=== PATIENT | male | born 1945 | race Caucasian/White ===

== ENCOUNTER 2023-03-09 18:35 | Emergency (ER) | payer MEDICARE, BC, SELFPAY ==
--- NOTE | ~2023-03-09 | XR_ITS ---
EXAMINATION: XR tibia fibula RT 2V DATE: 03/09/2023 20:25 INDICATION: Right lower leg spider bite. TECHNIQUE: 2 views of right tibia and fibula on 4 radiographs were obtained. COMPARISON: None. FINDINGS: There is a total right knee arthroplasty with patellar resurfacing in near-anatomic alignme nt. No fracture. No periprosthetic lucency to suggest loosening or infection. No knee joint effusion. There is mild midfoot osteoarthritis. There are enthesophytes at the posterior and plantar aspects o f calcaneal tuberosity. IMPRESSION: 1. Total right knee arthroplasty in near-anatomic alignment. 2. Mild midfoot osteoarthritis. Reviewed, dictated and finalized at location E.
[2023-03-09 18:45] VITALS: BP 110/64; PULSE 62; RESP 14; TEMP 36.7; O2SAT 98
[2023-03-09 19:24] VITALS: BP 124/67; PULSE 60; RESP 15; TEMP 36.6; O2SAT 99
--- NOTE | 2023-03-09 20:09 | ED.GENADULT ---
HPI - General Adult General Chief complaint: Wound/Laceration Stated complaint: spider bite Time Seen by Provider: 03/09/23 19:38 History of Present Illness HPI narrative: This is a 78-year-old male presenting ED with a spider bite to the right calf. Patient noticed yesterday that he had a central area of duskiness surrounded by some erythema in his right calf. He says he has low sees spiders around his house frequently but did not see 1 bite him today. He denies any systemic signs of illness such as fever chills nausea vomiting or diarrhea. Related Data Home Medications Medication Instructions Recorded Confirmed omeprazole magnesium 20 mg 20 mg PO DAILY 02/16/20 08/31/22 tablet,delayed release (Prilosec OTC) Allergies Allergy/AdvReac Type Severity Reaction Status Date / Time No Known Allergies Allergy Verified 08/17/21 13:18 [facility] Past Medical History Medical History Arthritis BPH (benign prostatic hyperplasia) HTN (hypertension) IBS (irritable bowel syndrome) Osteoporosis Stroke Surgical History Surgical History History of appendectomy History of left hip replacement History of left knee replacement History of right hip replacement History of total right knee replacement Hx of cholecystectomy Family History Family History Mother Heart attack Social History Social History Social History: caffeine-1 cup Smoking packs per day: 1.5 Smoking cigarettes per day: 30.0 Smoking status: Never smoker Tobacco type: cigarettes Alcohol intake: former Exam Narrative: APPEARANCE: No apparent distress. Head: atraumatic. EYES: EOMI, NOSE: Atraumatic NECK: Trachea midline RESPIRATORY: No increased rate of breathing CARDIOVASCULAR: RRR, ABDOMINAL: Non-distended MUSCULOSKELETAl: No obvious deformities NEURO: Alert. Moving 4/4 extremities SKIN:: warmth and erythema to the right calf. No area of fluctuance. No ulceration. PSYCHIATRIC: Normal affect Course Vital Signs Vital signs: Vital Signs Temperature 98.0 F 03/09/23 18:45 Pulse Rate 62 03/09/23 18:45 Respiratory Rate 14 03/09/23 18:45 Blood Pressure 110/64 03/09/23 18:45 Pulse Oximetry 98 03/09/23 18:45 Oxygen Delivery Room Air 03/09/23 18:45 Temperature 98 F 03/09/23 19:24 Pulse Rate 60 03/09/23 19:24 Respiratory Rate 15 03/09/23 19:24 Blood Pressure 124/67 03/09/23 19:24 Pulse Oximetry 99 03/09/23 19:24 Oxygen Delivery Room Air 03/09/23 18:45 Medical Decision Making MDM Narrative Medical decision making narrative: -Presentation: 78-year-old male presenting with skin lesion on the right calf. -DDX includes but is not limited to: Cellulitis, spider bite -Co-morbidities complicating care: history of CVA -Social determinants of health: retired, lives alone -External Chart Review: PCP officevisit from 09/19 -Hx from independent Sources: none -Discussion of Management/Consultants: none -Independent interpretation of studies: CBC and metabolic panel within normal limits. X-ray unremarkable. Physical exam showed no area of fluctuance indicating abscess and no crepitus and creating subcu air. Dx tests considered but not ordered: None -Procedures: none -Interventions: 1 g iv ancef -Shared decision making / Disposition: Patient will be started on Keflex. He should follow up his primary care physician as if this is a brown recluse bite he may need debridement. -RX Keflex 500 mg q.6 x7 days Vital Signs Vital Signs: Vital Signs Temperature 98.0 F 03/09/23 18:45 Pulse Rate 62 03/09/23 18:45 Respiratory Rate 14 03/09/23 18:45 Blood Pressure 110/64 03/09/23 18:45 Pulse Oximetry 98 03/09/23 18:45 Oxygen Delivery R
[2023-03-09] MEDS: ceFAZolin SODIUM 1 GM VIAL IM (20:24)
[2023-03-09 20:52] LABS: Basophils Absolute Auto 0.1 K/mm3 (0.0-0.1); Basophils Percent Auto 0.8 % (0.2-1.2); Eosinophils Absolute Auto 0.2 K/mm3 (0-0.3); Eosinophils Percent Auto 2.6 % (0-4.4); Hematocrit 37.2 % (42.0-52.0); Hemoglobin 12.4 g/dL (14.0-18.0); Immature Granulocyte Absolute 0.03 K/mm3 (0.00-0.031); Immature Granulocyte Percent A 0.5 % (0-0.5); Lymphocytes Absolute Auto 1.34 K/mm3 (0.9-3.2); Lymphocytes Percent Auto 20.2 % (18.3-44.2); Mean Corpuscular HGB Conc 33.3 g/dl (32-36); Mean Corpuscular Hemoglobin 32.3 pg (26-34); Mean Corpuscular Volume 96.9 fl (80-100); Monocytes Absolute Auto 0.8 K/mm3 (0.1-0.6); Monocytes Percent Auto 12.3 % (2.6-8.5); Neutrophils Absolute Auto 4.2 K/mm3 (1.3-6.7); Neutrophils Percent Auto 63.6 % (45.5-73.1); Platelet Count Result 150 k/mm3 (150-375); Red Blood Count 3.84 M/mm3 (4.6-6.20); Red Cell Distribution Width 12.5 % (11.5-14.5); White Blood Count 6.6 K/mm3 (4.5-10.0)
[2023-03-09 21:02] LABS: Anion Gap 8 mmol/L (8-16); Blood Urea Nitrogen 9 mg/dL (9-20); Calcium 8.6 mg/dL (8.4-10.2); Carbon Dioxide 24 mmol/L (22-30); Chloride 104 mmol/L (98-107); Estimated CRCL calculation 58 ml/min; Estimated Glomerular Filt Rate > 60; Glucose 107 mg/dL (65-110); Potassium 3.8 mmol/L (3.4-5.0); Sodium 136 mmol/L (137-145)
[2023-03-09 21:38] VITALS: BP 123/63; PULSE 60; RESP 15; O2SAT 100
[2023-03-09 22:08] VITALS: BP 123/63; PULSE 57; RESP 20; O2SAT 99
== END 2023-03-09 22:08 | disposition home or self-care (01) ==
PROVIDERS: Emergency Provider Emergency Medicine; PCP Internal Medicine
DX: L03.115 Cellulitis of right lower limb (principal); N40.0 Benign prostatic hyperplasia without lower urinary tract symptoms; K58.9 Irritable bowel syndrome, unspecified; M19.90 Unspecified osteoarthritis, unspecified site; M81.0 Age-related osteoporosis without current pathological fracture; Z96.643 Presence of artificial hip joint, bilateral; Z96.653 Presence of artificial knee joint, bilateral; Z86.73 Personal history of transient ischemic attack (TIA), and cerebral infarction without residual deficits; Z90.49 Acquired absence of other specified parts of digestive tract; F17.210 Nicotine dependence, cigarettes, uncomplicated
CPT/HCPCS: 36415; 73590; 80048; 85025; 99283; J0690

== ENCOUNTER 2024-07-15 14:16 | Emergency (ER) | payer MEDICARE, BC, SELFPAY ==
--- NOTE | ~2024-07-15 | XR_ITS ---
EXAMINATION: [id number] DATE: 07/15/2024 15:55 INDICATION: Fall. TECHNIQUE: A frontal view of the chest and 2 views on 3 radiographs of the right ribs were obtained. COMPARISON: None. FINDINGS: A calcified right lung nodule and calcified mediastinal lymph nodes are consistent with old granulomatous disease. No pleural effusion or pneumothorax. The heart size is normal. Surgical clips in the right upper quadrant are likely from cholecystectomy. IMPRESSION: 1. No rib fracture. Reviewed, dictated and finalized at location A. IMPRESSION: 1. No rib fracture.
--- NOTE | 2024-07-15 14:37 | ED.FALL ---
HPI - Fall General Chief Complaint: Fall Stated Complaint: fall Time Seen by Provider: 07/15/24 14:38 Source: patient Mode of arrival: ambulatory Limitations: no limitations History of Present Illness HPI Narrative: 79-year-old male with a history of CVA, hypertension, and gait instability presented after a fall 2 days ago. Patient reportedly lost his balance while using his Rollator walker, and fell back landing on his buttock on carpeted floor. He denies hitting his head or loss of consciousness. Currently reports pain to the right anterior chest. He states he was assisted up by family, who ?pulled on his arm. Rates pain 04/07. Pt slept most of today and yesterday. Denies palpitations, dizziness, sob, wheezing, hemoptysis, n/v. Pt is taking hydrocodone for dental extractions one week ago. Related Data Home Medications Medication Instructions Recorded Confirmed amoxicillin 875 mg tablet 875 mg PO DIRECTED 07/15/24 07/15/24 hydrocodone 5 mg-acetaminophen 325 1 tablet DIRECTED 07/15/24 07/15/24 mg tablet Allergies Allergy/AdvReac Type Severity Reaction Status Date / Time No Known Allergies Allergy Verified 08/17/21 13:18 Review of Systems Review of Systems: CONSTITUTIONAL: Denies body aches, fever, chills, or sweats. EYES: Denies visual changes CARDIOVASCULAR: Reports right chest pain Denies palpitations, or edema. RESPIRATORY: Denies cough or dyspnea. GASTROINTESTINAL: Denies abdominal pain, nausea, vomiting, or diarrhea. SKIN: Denies wounds. MUSCULOSKELETAL: Reports right chest pain NEUROLOGIC: Denies headache, numbness, tingling, or weakness. All systems reviewed & are unremarkable except as noted in HPI and below PMFSH Past Medical History Medical History Arthritis BPH (benign prostatic hyperplasia) HTN (hypertension) IBS (irritable bowel syndrome) Osteoporosis Stroke Surgical History Surgical History History of appendectomy History of left hip replacement History of left knee replacement History of right hip replacement History of total right knee replacement Hx of cholecystectomy Family History Family History Mother Heart attack Social History Social History Social History: caffeine-1 cup Smoking packs per day: 1.5 Smoking cigarettes per day: 30.0 Smoking status: Never smoker Tobacco type: cigarettes Alcohol intake: former Comments At time of signature, I have reviewed and agree with nursing past medical, surgical, social and family history unless otherwise noted. Please see nursing chart for further information. There is no relevant family history pertinent to the presenting complaint Exam Narrative: GENERAL: chronically frail appearing, in no acute distress. HEAD: Normocephalic, atraumatic. ENT: Mucous membranes pink and moist. NECK: Baseline AROM. CHEST: No respiratory distress. Clear to auscultation. Nontender with palpation, no bruising or flail chest noted. HEART: Regular rate and rhythm. murmur appreciated. Normal peripheral pulses. ABDOMEN: Soft, nontender, nondistended, normal active bowel sounds. EXTREMITIES: Limited range of motion at hips, knees appears at baseline. No edema. Slow moving, requires assist with transfer. Using cane and w/c. SKIN: Warm, dry, no rash. Capillary refill normal. Normal skin turgor. NEURO: No focal deficits. Alert and oriented x3. Answers questions appropriately PSYCH: Normal affect. Course Course Emergency Course: Patient is aware of diagnosis, understands and agrees to treatment plan. Anticipatory guidance given. Patient agrees to follow-up as directed and is aware of reasons to seek care at the emergency department. Portions of this record may have been created with voice recognition
[2024-07-15 14:40] VITALS: BP 102/52; PULSE 56; RESP 18; TEMP 36.6; O2SAT 96
--- NOTE | 2024-07-15 15:12 | ECG_ITS ---
Test Date: 2024-07-15 15:01:05 Measurements Intervals [place] Rate: 63 P: 91 LA: 184 QRS: 33 QRSD: 86 T: 74 QT: 391 QTc: 401 Interpretive Statements SINUS RHYTHM WITH FREQUENT SUPRAVENTRICULAR PREMATURE COMPLEXES ANTEROSEPTAL INFARCT, AGE INDETERMINATE BORDERLINE ST-T WAVE ABNORMALITY- DIFFUSE LEADS BASELINE ARTIFACT- I, II, III, AVR, AVL, AVF ABNORMAL ECG No previous ECG available for comparison Electronically Signed On 07-15-2024 15:15:24 CDT by Lexa Cuellar D.O.
== END 2024-07-15 16:21 | disposition home or self-care (01) ==
PROVIDERS: Emergency Provider Nurse Practitioner Family; PCP Internal Medicine
DX: R07.89 Other chest pain (principal); M19.90 Unspecified osteoarthritis, unspecified site; N40.0 Benign prostatic hyperplasia without lower urinary tract symptoms; I10 Essential (primary) hypertension; M81.0 Age-related osteoporosis without current pathological fracture; Z86.73 Personal history of transient ischemic attack (TIA), and cerebral infarction without residual deficits; Z96.643 Presence of artificial hip joint, bilateral; Z96.653 Presence of artificial knee joint, bilateral
CPT/HCPCS: 71101; 93005; 99213; G0463

== ENCOUNTER 2024-07-24 14:47 | Outpatient (CLI) | payer MEDICARE, BC, SELFPAY ==
[2024-07-24 19:32] LABS: Basophils Absolute Auto 0.1 K/mm3 (0.0-0.1); Basophils Percent Auto 0.8 % (0.2-1.2); Eosinophils Absolute Auto 0.1 K/mm3 (0-0.3); Hematocrit 37.4 % (42.0-52.0); Hemoglobin 12.2 g/dL (14.0-18.0); Immature Granulocyte Absolute 0.03 K/mm3 (0.00-0.031); Immature Granulocyte Percent A 0.4 % (0-0.5); Lymphocytes Absolute Auto 2.16 K/mm3 (0.9-3.2); Lymphocytes Percent Auto 26.1 % (18.3-44.2); Mean Corpuscular HGB Conc 32.6 g/dl (32-36); Mean Corpuscular Hemoglobin 31.3 pg (26-34); Mean Corpuscular Volume 95.9 fl (80-100); Mean Platelet Volume 12.9 fl (7.4-10.4); Monocytes Absolute Auto 0.9 K/mm3 (0.1-0.6); Monocytes Percent Auto 10.5 % (2.6-8.5); Neutrophils Absolute Auto 5.1 K/mm3 (1.3-6.7); Neutrophils Percent Auto 61.2 % (45.5-73.1); Platelet Count Result 199 k/mm3 (150-375); Red Cell Distribution Width 12.3 % (11.5-14.5); White Blood Count 8.3 K/mm3 (4.5-10.0)
[2024-07-24 20:02] LABS: Alanine Aminotransferase 24 U/L (6-50); Albumin Level 3.9 g/dL (3.5-5.1); Alkaline Phosphatase 123 U/L (38-126); Anion Gap 7 mmol/L (4-12); Aspartate Amino Transferase 43 U/L (17-59); Bilirubin,Total 0.6 mg/dL (0.2-1.3); Blood Urea Nitrogen 16 mg/dL (9-20); Calcium 8.9 mg/dL (8.4-10.2); Carbon Dioxide 26 mmol/L (22-30); Chloride 103 mmol/L (98-107); Cholesterol 112 mg/dL (0-200); Estimated Glomerular Filt Rate > 60; Glucose 104 mg/dL (65-110); HDL Direct 42 mg/dL; Iron 83 ug/dL (49-181); Potassium 3.8 mmol/L (3.4-5.0); Sodium 136 mmol/L (137-145); Triglycerides 64 mg/dL (<150)
[2024-07-24 20:12] LABS: Percent Iron Saturation 30 % (20-50)
[2024-07-24 20:13] LABS: LDL Cholesterol Direct 50 mg/dL
[2024-07-24 20:25] LABS: Thyroid Stimulating Hormone 0.907 uIU/mL (0.465-4.680)
[2024-07-24 21:00] LABS: Folic Acid 14.2 ng/mL (2.76->20)
== END 2024-07-24 14:48 | disposition home or self-care (01) ==
LOC: ANHGOSHLAB 14:49
PROVIDERS: PCP Internal Medicine; Visit Provider Clinical Nurse Specialist
DX: E78.5 Hyperlipidemia, unspecified (principal); D64.9 Anemia, unspecified; I10 Essential (primary) hypertension; I63.9 Cerebral infarction, unspecified; K59.00 Constipation, unspecified
CPT/HCPCS: 36415; 80053; 80061; 82607; 82728; 82746; 83540; 83550; 84443; 85025

== ENCOUNTER 2024-12-29 12:10 | Emergency (ER) | payer MEDICARE, BC, SELFPAY ==
--- NOTE | ~2024-12-29 | XR_ITS ---
3 VIEWS LUMBAR SPINE Ordering provider: Tatiana Lemus NP History: . pain LT Rib/back after fall . Comparison: None. FINDINGS: VERTEBRAL BODIES:Loss of volume of L1 is noted most likely chronic. No visible fracture or subluxati on. Dextroscoliosis. Degenerative changes of the spine. DISK SPACES: Normal. Multilevel facet joint disease. SOFT TISSUES: Normal. Bilateral hip arthroplasty. IMPRESSION: No acute osseous abnormality lumbar spine. Chronic loss of height of L1. Reviewed, dictated and finalized at location A. IRONER
--- NOTE | ~2024-12-29 | XR_ITS ---
EXAMINATION: [id number] DATE: 12/29/2024 14:00 INDICATION: Left rib pain. Fall. TECHNIQUE: A frontal view of the chest and 2 views on 3 radiographs of the left ribs were obtained. COMPARISON: Chest single view 07/15/24 FINDINGS: Calcified right lung nodules and calcified hilar mediastinal lymph nodes are consistent wit h old granulomatous disease. No pleural effusion or pneumothorax. The heart size is normal. There is a fracture of left 10th rib. IMPRESSION: 1. Fracture of left 10th rib. Reviewed, dictated and finalized at location A. IGINAL HOME SCHOOL LIAISON OFFICER
--- NOTE | ~2024-12-29 | XR_ITS ---
EXAMINATION: XR thoracic spine 3V DATE: 12/29/2024 13:59 INDICATION: Back pain post fall TECHNIQUE: One AP, lateral and lateral swimmer's views of the thoracic spine were obtained. COMPARISON: Chest CT dated 11/03/2017 FINDINGS: 35 degree thoracolumbar dextroscoliosis with any degree compensatory mid to lower thoracic levoscolio sis. There is a kyphosis with chronic anterior wedging of multiple vertebral bodies from T8 through L 1. Multilevel thoracic disc height loss, mild in the upper thoracic spine position and moderate sever ity in the mid thoracic spine and severe in the lower thoracic spine. Visualized portion of lungs are clear. Calcified right hilar and mediastinal lymph nodes consistent with old granulomatous disease. Cholecystectomy clips in right upper quadrant. IMPRESSION: 1. Thoracic kyphosis with multiple chronic compression fractures in the lower thoracic and upper lumb ar spine. 2. 20 degrees mid to lower thoracic levoscoliosis and 35 degrees thoracolumbar dextroscoliosis with s evere spondylosis. Reviewed, dictated and finalized at location B. ING HOUSE LABORER IMPRESSION: 1. Thoracic kyphosis with multiple chronic compression fractures in the lower t horacic and upper lumbar spine. 2. 20 degrees mid to lower thoracic levoscoliosis and 35 degrees thoracolumbar dextroscoliosis with severe spondylosis.
[2024-12-29 12:32] VITALS: BP 121/72; PULSE 60; RESP 20; TEMP 36.2; O2SAT 98
--- NOTE | 2024-12-29 12:32 | ED.FALL ---
HPI - Fall General Chief Complaint: Fall Stated Complaint: Fall Time Seen by Provider: 12/29/24 12:32 Source: patient Mode of arrival: ambulatory Limitations: no limitations History of Present Illness HPI Narrative: 79 yo M presents with his son with c/o fall yesterday and another fall the day before. Pt uses walking on wheels when ambulatory. Pt states both falls related to him getting too far away from his walker and losing his balance . Denies LOC. Fell onto back the first fall and yesterday fell onto L side. did not hit head. Pt's son states increased generalized weakness over past several weeks. son states PCP aware and has appt with PCP tomomtodd. Pt alert and oriented. C/o L rib pain and low back pain. Brought into [facility] via wheelchair by his son. All systems reviewed and negative except as noted above. Related Data Home Medications ?Medication ?Instructions ?Recorded ?Confirmed ?Last Taken ?Type aspirin 25 mg-dipyridamole 200 mg 1 cap PO QHS 07/30/24 12/30/24 Unknown History capsule,ext.release 12 hr multiphase Allergies Allergy/AdvReac Type Severity Reaction Status Date / Time No Known Allergies Allergy Verified 12/30/24 14:05 Review of Systems Review of Systems: CONSTITUTIONAL: Denies fever, chills, or sweats. EYES: Denies visual changes, redness, or discharge. ENT: Denies rhinorrhea, congestion, sore throat, or otalgia. CARDIOVASCULAR: Denies chest pain, palpitations, or edema. RESPIRATORY: Denies cough or dyspnea. GASTROINTESTINAL: Denies abdominal pain, nausea, vomiting, or diarrhea. GENITOURINARY: Denies dysuria or hematuria. SKIN: Denies rash or itching. MUSCULOSKELETAL: Reports low back pain,, left rib pain. Denies joint pain, or myalgia. NEUROLOGIC: Denies headache, numbness, or weakness. PSYCHIATRIC: Denies anxiety or depression. All other systems reviewed are negative, except as documented in HPI. [facility] Past Medical History Medical History Arthritis BPH (benign prostatic hyperplasia) HTN (hypertension) IBS (irritable bowel syndrome) Osteoporosis Stroke Surgical History Surgical History History of right hip replacement History of total right knee replacement History of left hip replacement History of left knee replacement History of appendectomy Hx of cholecystectomy Family History Family History Mother Heart attack Social History Social History Social History: caffeine-1 cup Smoking packs per day: 1.5 Smoking cigarettes per day: 30.0 Smoking status: Never smoker Tobacco type: cigarettes Alcohol intake: former Comments At time of signature, agree with nursing past medical, surgical, social and family history. There is no relevant family history pertinent to the presenting complaint. Exam Narrative: GENERAL: This is a well-nourished, well-developed patient, in no apparent distress. HEAD: normocephalic, atraumatic. EYES: PERRL. Sclera clear/white. Vision is grossly intact. EARS: External ears normal NOSE: External nose normal NECK: Neck supple, non-tender without lymphadenopathy, masses or thyromegaly. CARDIOVASCULAR: Regular rate and rhythm without murmurs, gallops, or rubs. RESPIRATORY: Clear to auscultation. Breath sounds equal bilaterally. No wheezes, rales, or rhonchi. SKIN: warm, Dry, intact with no suspicious lesions or rash, good texture and turgor. NEURO: awake, alert, and oriented to person, place and time. There were no obvious focal neurologic abnormalities. EXTREMITIES: No joint tenderness, effusion, or edema noted. No calf tenderness. Negative Homans sign bilaterally. MUSCULOSKELETAL: tenderness to L lateral ribs without bruising BACK: tenderness thoracic T6-T8 and lumbar spine L4L6 without deformity Course Course Level of Care: Express Care Visit Vital Signs Vital signs: Vital Signs Temperature 36.2 C L 12/29/24 12:32 Pulse Rate 60 12/29/24 12:32 Respiratory Rate 20 12/29/24 12:32 Blood Pressure 121/72 12/29/24 12:32 Pulse Oximetry 98 12/29/24 12:32 Oxygen Delivery Room Air 12/29/24 12:32 Temperature 36.2 C L 12/29/24 12:32 Pulse Rate 60 12/29/24 12:32 Respiratory Rate 20 12/29/24 12:32 Blood Pressure 121/72 12/29/24 12:32 Pulse Oximetry 98 12/29/24 12:32 Oxygen Delivery Room Air 12/29/24 12:32 reviewed MDM - Fall MDM Narrative Medical decision making narrative: discussed x-ray results with patient. X-ray of rib shows 10th rib fracture. X-ray of of thoracic and lumbar spine negative for fracture. Will prescribe tramadol for patient's pain. Patient educated on incentive spirometer. Has appointment with his PCP tomorrow. Recommend he go to the ER for any worsening of his symptoms. Please be advised this is a medical document. It is intended for vybq-gy-mecb communication. It is written in medical language and may contain unfamiliar abbreviations or verbiage. Medical documents are intended to carry relevant information, facts as evident, and the clinical opinion of the practitioner at the time of the encounter. This report may have been done utilizing a voice recognition system. Attempts have been made to correct errors. However, there may be uncorrected grammatical, spelling, and recognition errors present. The file time of this note does not necessarily represent the time of service. Imaging Data My impression: agree with radiologist Radiologist's impression: EXAMINATION: [id number] DATE: 12/29/2024 14:00 INDICATION: Left rib pain. Fall. TECHNIQUE: A frontal view of the chest and 2 views on 3 radiographs of the left ribs were obtained. COMPARISON: Chest single view 07/15/24 FINDINGS: Calcified right lung nodules and calcified hilar mediastinal lymph nodes are consistent with old granulomatous disease. No pleural effusion or pneumothorax. The heart size is normal. There is a fracture of left 10th rib. IMPRESSION: 1. Fracture of left 10th rib. Discharge Plan Discharge Clinical Impression: Left rib fracture Patient Disposition: Home, Self-Care Condition: Stable Instructions: How to Use an Incentive Spirometer (ED), Rib Fracture (ED) Additional Instructions: The x-ray of your ribs shows a fracture to your 10th rib. your thoracic and lumbar spine are negative for fracture. Take tramadol as prescribed to treat pain. This medication may cause drowsiness and put you at increased risk of falls. Apply ice as needed for pain. Use incentive spirometer as directed in discharge packet. See your doctor at scheduled appointment tomorrow. Patient Language: Hebrew Prescriptions: No Action Tylenol Extra Strength 500 mg powder in packet 1,000 mg PO Q8H PRN (Reason: pain) Qty: 32 0RF aspirin-dipyridamole 25-200 mg capsule, ER multiphase 12 hr 1 cap PO QHS buprenorphine [Butrans] 5 mcg/hour patch weekly 1 patch transdermal Q7D Qty: 4 0RF Follow-up/Referrals: Rahul Morgan DO [Primary Care Provider] - Time of Disposition: 14:18
[2024-12-29] MEDS: ACETAMINOPHEN 500 MG TABLET PO (13:26)
--- OUTSIDE RECORDS SUMMARY | 2024-12-29 13:29 | XMS_ITS | Continuity of Care Document ---
Author Organization [facility] Address [address] [place] [address] [address] [place] [address] Phone Care Team Providers Care Elementary Instructional Coach Name Role Phone Setvie Sampson Unavailable Unavailable Advance Directives Directive Yes / No Effective Date File Name No Information Encounters Encounter Description Practice Location Reason(s) For Visit Diagnoses Date Provider Providers Copied on Encounter [facility], [id number] [place] [address] [address], [place], [place], [id number], [place] tel:[phone] [facility] No Information Mar-0 1-200 0 Camilla Hubbard. [address] , [address], [place], [address], [place]. tel:[phone] Family History Family Member Type Diagnosis Age At Onset No Information Payers Payer name Insurance type Covered libertarian ID Authoriza tion(s) No Information Social History Type Description Quantity Date Captured Comments Sex Male Smoking Status No Information Chief Complaint And Reason For Visit No Information Reason For Referral Reason For Referral No Information History Of Present Illness Encounter Date Complaint History Of Prese nt Illness No Information Functional Status Date Functional Assessmen t No Information Instructions Date Instruction Additional Infor mation No Information Assessments Type Assessment Date No Information Patient Care Teams Name Effective Dates (start - stop) Status Members No Information
--- OUTSIDE RECORDS SUMMARY | 2024-12-29 13:29 | XMS_ITS | Continuity of Care Document ---
Author Organization [facility] Address [address] [place] [address] [address] [place] [address] Phone Care Team Providers Care Cleaning Maid Name Role Phone Derek NAVARRETE, Steven Unavailable Unavaila ble Medications Medication Instructions Dosage Effective Dates (start - stop) Status Comments Pred Forte 1 % eye drops,suspension instill 1 drop in operative eye QID starting AFTER surgery and continuing for 4 weeks - Active this can replace durezol or Lotemax Gel ofloxacin 0.3 % eye drops one drop in operative eye four times daily starting AFTER surgery and continuing for 1 week - Active this can replace besivance ketorolac 0.4 % eye drops instill one drop in operative eye QID starting 4 hours after surgery and continuing for 4 weeks AFTER surgery. - Active this can re place prolensa or Ilevro Procedures Procedure Date AFTER CATARACT LASER SURGERY OFFICE/OUTPATIENT VISIT, EST CATARACT SURG W/IOL, 1 STAGE CATARACT SURG W/IOL, 1 STAGE OFFICE/OUTPATIENT VISIT, [facility] OPHTHALMIC [facility] OPHTHALMIC BIOMETRY DILATED EXAM RIGHT EYE DILATED EXAM LEFT EYE Advance Directives Directive Yes / No Effective Date File Name No Information Encounters Encounter Description Practice Location Reason(s) For Visit Diagnoses Date Provider Providers Copied on Encounter [facility], [id number] [place], [place] [address] [address], [place], [place], [id number], [place] tel:[phone] [facility] No Information 7 Derek Harris. [address] , [address] [place] [address], [id number], [place]. tel:[phone] Referring Provider: Steven Aleksandrgray mishra, [address], [place], [place], [address]. tel:[phone] OFFICE/OUTPA TIENT VISIT, [facility], [address] [place] [address], [id number], [place] tel:[phone] [facility] No Information 7 Derek Harris. [address], [address], [place], [place], [address], [place]. tel:[phone] Referring Provider: Steven Brandongray mishra, [address], [place], [place], [address]. tel:[phone] [facility], [address] [place] [address], [id number], [place] tel:[phone] [facility] No Information 6 Xiomara Muro. [address], [address], [place], [place], [address], [place]. tel:[phone] Referring Provider: Bhaskar Cueva, [address], [place], [place], [address]. tel:[phone] [facility], [address] [place] [address], [id number], [place] tel:[phone] [facility] No Information 6 Xiomara Muro. [address], [address], [place], [place], [address], [place]. tel:[phone] Referring Provider: Bhaskar Cueva, [address], [place], [place], [address]. tel:[phone] [facility], [address] [place] [address], [id number], [place] tel:[phone] [facility] No Information 6 Xiomara Muro. [address], [address], [place], [place], [address], [place]. tel:[phone] OFFICE/OUTPA TIENT VISIT, NEW [facility], [address], [place], [place], [address], [place] tel:[phone] [facility] No Information Xiomara Muro. [address], [address], [place], [place], [id number], [place]. tel:[phone] Referring Provider: Bhaskar Solano MD P, [address], [place], [place], [address]. tel:[phone] Family History Family Member Type Diagnosis Age At Onset No Information Payers Payer name Insurance type Covered green party ID Authorfrancisca caicedo(s) [facility] [id number] Social History Type Description Quantity Date Captured Comments Sex Female Smoking Status No Information Chief Complaint And Reason For Visit No Information Plan Of Treatment Date Type Action Status No Information History Of Present Illness Encounter Date Complaint History Of Prese nt Illness No Information Instructions Date Instruction Additional Infor mation No Information Assessments Type Assessment Date No Information
--- OUTSIDE RECORDS SUMMARY | 2024-12-29 13:29 | XMS_ITS | CONTINUITY OF CARE DOCUMENT ---
Author Name hilaryshawnbarbara Address Unknown Organization [facility] Address [address] [place] [address] [address] [place] [address] Phone [phone] Care Team Providers Care Director Of Math Name Role Phone Neisha NAVARRETE, Killian Unavailable [phone] VINEET NAVARRETE, DESTINEY Ocampo Unavailable INSURANCE PROVIDERS Payer name Policy type / Coverage type [place] red alliance party ID [place] [employer] Medicare [id number] [facility] [id number]
--- OUTSIDE RECORDS SUMMARY | 2024-12-29 13:30 | XMS_ITS | CONTINUITY OF CARE DOCUMENT ---
Author Name hilaryshawnbarbara Address Unknown Organization [facility] Address [address] [place] [address] [address] [place] [address] Phone [phone] Care Team Providers Care Newspaper Publisher Name Role Phone Neisha NAVARRETE, Killian Unavailable VINEET NAVARRETE, DESTINEY Ocampo Unavailable [phone] INSURANCE PROVIDERS Payer name Policy type / Coverage type [place] red libertarian ID [place] Medicare [id number] [facility] [id number]
--- OUTSIDE RECORDS SUMMARY | 2024-12-29 13:30 | XMS_ITS | Continuity of Care Document ---
Author Organization [facility] Address [id number] [place] [address] [address] [place] [address] Phone Care Team Providers Care Aprn Name Role Phone Derek NAVARRETE, Steven Unavailable [...] CATARACT SURG W/IOL, 1 STAGE OFFICE/OUTPATIENT VISIT, [facility] OPHTHALMIC [facility]OMETRY OPHTHALMIC BIOMETRY DILATED EXAM RIGHT EYE DILATED EXAM LEFT EYE Advance Directives Directive Yes / No Effective Date File Name No Information Encounters Encounter Description Practice Location Reason(s) For Visit Diagnoses Date Provider Providers Copied on Encounter [facility], [address] [place], [place] [address] [address], [place], [place], [address], [place] tel:[phone] [facility] No Information 7 Derek Harris. [address] , [address] [place] [address], [id number], [place]. tel:[phone] Referring Provider: Steven Aleksandrgray mishra, [address], [place], [place], [address]. tel:[phone] OFFICE/OUTPA TIENT VISIT, [facility], [address] [place] [address], [id number], [place] tel:[phone] [facility] No Information 7 Derek Harris. [address], [address], [place], [place], [address], [place]. tel:[phone] Referring Provider: Steven Brandongray mishra, [address], [place], [place], [address]. tel:[phone] [facility], [address] [place] [address], [id number], [place] tel:[phone] [facility] No Information 6 Xiomara Muro. [address], [address], [place], [place], [address], [place]. tel:[phone] Referring Provider: Bhaskar Cueva, [address], [place], [place], [address]. tel:[phone] [facility], [address] [place] [address], [id number], [place] tel:[phone] [facility] No Information 6 Xiomara Muro. [address], [address], [place], [place], [address], [place]. tel:[phone] Referring Provider: Bhaskar Cueva, [address], [place], [place], [address]. tel:[phone] [facility], [address] [place] [address], [id number], [place] tel:[phone] [facility] No Information 6 Xiomara Muro. [address], [address], [place], [place], [address], [place]. tel:[phone] OFFICE/OUTPA TIENT VISIT, NEW [facility], [address], [place], [place], [id number], [place] tel:[phone] [facility] No Information Xiomara Muro. [address], [address], [place], [place], [address], [place]. tel:[phone] Referring Provider: Bhaskar Solano MD P, [address], [place], [place], [address]. tel:[phone] Family History Family Member Type Diagnosis Age At Onset No Information Payers Payer name Insurance type Covered green party ID Authorfrancisca caicedo(s) [facility] [id number] Social History Type Description Quantity Date Captured [...]
--- OUTSIDE RECORDS SUMMARY | 2024-12-29 13:30 | XMS_ITS | Continuity of Care Document ---
Author Organization [facility] Address [address] [place] [address] [address] [place] [address] Phone Care Team Providers Care Eyewear Manufacturing Supervisor Name Role Phone Stevie Sampson Unavailable Unavailable Advance Directives Directive Yes / No Effective Date File Name No Information Encounters Encounter Description Practice Location Reason(s) For Visit Diagnoses Date Provider Providers Copied on Encounter [facility], [address] [place] [address] [address], [place], [place], [address], [place] tel:[phone] SEC [facility] No Information Mar-0 1-200 0 Camilla Hubbard. [address] [facility] , [address], [place], [address], [place]. tel:[phone] Family History Family Member Type Diagnosis Age At Onset No Information Payers Payer name Insurance type Covered constitution party ID Authoriza tion(s) No Information Social History [...]
== END 2024-12-29 14:22 | disposition home or self-care (01) ==
PROVIDERS: Emergency Provider Nurse Practitioner Family; PCP Internal Medicine
DX: S22.32XA Fracture of one rib, left side, initial encounter for closed fracture (principal); W19.XXXA Unspecified fall, initial encounter; M19.90 Unspecified osteoarthritis, unspecified site; N40.0 Benign prostatic hyperplasia without lower urinary tract symptoms; I10 Essential (primary) hypertension; M81.0 Age-related osteoporosis without current pathological fracture; F17.210 Nicotine dependence, cigarettes, uncomplicated; Z86.73 Personal history of transient ischemic attack (TIA), and cerebral infarction without residual deficits; Z96.653 Presence of artificial knee joint, bilateral; Z96.643 Presence of artificial hip joint, bilateral
CPT/HCPCS: 71101; 72072; 72100; 99214; A9270; G0463

== ENCOUNTER 2025-01-03 12:39 | Emergency (ER) | payer MEDICARE, BC, SELFPAY ==
--- NOTE | ~2025-01-03 | XR_ITS ---
EXAMINATION: XR knee RT 3V DATE: 01/03/2025 13:18 INDICATION: Right knee pain. Fall. TECHNIQUE: 3 views of right knee were obtained. COMPARISON: Right knee radiographs 03/09/2023 FINDINGS: There is a total right knee arthroplasty in near-anatomic alignment with patellar resurfaci ng. No periprosthetic lucency to suggest loosening or infection. There is a transverse fracture of di stal femoral metaphysis. The distal fracture fragment demonstrates 15 degrees posterior angulation an d 10 degrees lateral angulation. There is a small knee joint effusion. IMPRESSION: 1. Transverse fracture of distal femoral metaphysis. 2. Total right knee arthroplasty in near-anatomic alignment. 3. Small knee joint effusion. Reviewed, dictated and finalized at location A. IDE PRODUCTION INSPECTOR
--- NOTE | ~2025-01-03 | XR_ITS ---
EXAMINATION: XR hip LT min 3V w AP pelvis DATE: 01/03/2025 13:18 INDICATION: Left hip pain. Fall. TECHNIQUE: An anteroposterior view of the pelvis and 3 views of left hip on a total of 6 radiographs were obtained. COMPARISON: None. FINDINGS: There are bilateral total hip arthroplasties in near-anatomic alignment. No periprosthetic lucency to suggest loosening or infection. No fracture. IMPRESSION: 1. Bilateral total hip arthroplasties in near-anatomic alignment. Reviewed, dictated and finalized at location A. ORK INFRASTRUCTURE ARCHITECT
[2025-01-03 12:41] VITALS: BP 158/80; PULSE 107; RESP 16; TEMP 36.6; O2SAT 95
--- OUTSIDE RECORDS SUMMARY | 2025-01-03 14:15 | XMS_ITS | CONTINUITY OF CARE DOCUMENT ---
Author Name hilaryshawnbarbara Address Unknown Organization [facility] Address [address] [place] [address] [place] [address] Phone [phone] Care Team Providers Care Platform Builder Name Role Phone Neisha NAVARRETE, Killian Unavailable VINEET NAVARRETE, DESTINEY Ocampo Unavailable INSURANCE PROVIDERS Payer name Policy type / Coverage type [place] red libertarian ID [place] [employer] Medicare [id number] [facility] [id number]
--- OUTSIDE RECORDS SUMMARY | 2025-01-03 14:15 | XMS_ITS | Continuity of Care Document ---
Author Organization [facility] Address [address] [place] [address] [address] [place] [address] Phone Care Team Providers Care Compress Machine Operator Name Role Phone Stveie Sampson Unavailable Unavailable Advance Directives Directive Yes / No Effective Date File Name No Information Encounters Encounter Description Practice Location Reason(s) For Visit Diagnoses Date Provider Providers Copied on Encounter [facility], [address] [place] [address] [address], [place], [place], [address], [place] tel:[phone] SEC [facility] No Information Mar-0 1-200 0 Camilla Hubbard. [address] [facility] , [address], [place], [address], [place]. tel:[phone] Family History Family Member Type Diagnosis Age At Onset No Information Payers Payer name Insurance type Covered democrat ID Authoriza tion(s) No Information Social History [...]
--- OUTSIDE RECORDS SUMMARY | 2025-01-03 14:15 | XMS_ITS | Continuity of Care Document ---
Author Organization [facility] Address [address] [place] [address] [address] [place] [address] Phone Care Team Providers Care Order To Delivery Supervisor Name Role Phone Derek NAVARRETE, Steven Unavailable [...] CATARACT SURG W/IOL, 1 STAGE OFFICE/OUTPATIENT VISIT, [facility] OPHTHALMIC BIOMETRY OPHTHALMIC BIOMETRY DILATED EXAM RIGHT EYE DILATED EXAM LEFT EYE Advance Directives Directive Yes / No Effective Date File Name No Information Encounters Encounter Description Practice Location Reason(s) For Visit Diagnoses Date Provider Providers Copied on Encounter [facility], [id number] [place], [place] [address], [place], [place], [address], [place] tel:[phone] [facility] No Information 7 Derek Harris. [address] , [address] [place] [address], [id number], [place]. tel:[phone] Referring Provider: Steven Aleksandrgray mishra, [address], [place], [place], [address]. tel:[phone] OFFICE/OUTPA TIENT VISIT, [facility], [address] [place] [address], [id number], [place] tel:[phone] [facility] No Information 7 Derek Harris. [address], [address], [place], [place], [address], [place]. tel:[phone] Referring Provider: Steven Brandongray mishra, [address], [place], [place], [address]. tel:[phone] [facility], [address] [place] [address], [id number], [place] tel:[phone] [facility] No Information 6 Xiomara Muro. [address], [address], [place], [place], [address], [place]. tel:[phone] Referring Provider: Bhaskar Cueva, [address], [place], [place], [address]. tel:[phone] [facility], [address] [place] [address], [id number], [place] tel:[phone] [facility] No Information 6 Xiomara Muro. [address], [address], [place], [place], [address], [place]. tel:[phone] Referring Provider: Bhaskar Cueva, [address], [place], [place], [address]. tel:[phone] [facility], [address] [place] [address], [id number], [place] tel:[phone] [facility] No Information 6 Xiomara Muro. [address], [address], [place], [place], [address], [place]. tel:[phone] OFFICE/OUTPA TIENT VISIT, NEW [facility], [address], [place], [place], [address], [place] tel:[phone] [facility] No Information Xiomara Muro. [address], [address], [place], [place], [address], [place]. tel:[phone] Referring Provider: Bhaskar Solano MD P, [address], [place], [place], [address]. tel:[phone] Family History Family Member Type Diagnosis Age At Onset No Information Payers Payer name Insurance type Covered democrat ID Authorfrancisca caicedo(s) [facility] [id number] Social History Type Description Quantity Date Captured [...]
[2025-01-03] MEDS: ONDANSETRON INJ 4 MG/2 ML VIAL IV PUSH (14:38)
[2025-01-03] MEDS: SODIUM CHLORIDE 0.9% IV 1,000 ML 999 ML IV CONT (14:38)
[2025-01-03] MEDS: HYDROmorphone HCL INJ (*CRX) 1 MG/ML SYR 0.5 MG IV PUSH (14:39)
--- NOTE | 2025-01-03 14:49 | ED_ITS ---
HPI - Fall General Chief Complaint: Fall <Haris Stephenson PA-C - Last Filed: 01/03/25 16:21> Stated Complaint: fall <Haris Stephenson PA-C - Last Filed: 01/03/25 16:21> Time Seen by Provider: 01/03/25 14:07 <Haris Stephenson PA-C - Last Filed: 01/03/25 16:21> Source: patient and family <DARIEL Kamara Last Filed: 01/03/25 16:21> Mode of arrival: EMS <Haris Stephenson PA-C - Last Filed: 01/03/25 16:21> Limitations: no limitations <Haris Stephenson PA-C - Last Filed: 01/03/25 16:21> History of Present Illness HPI Narrative: This is a 79-year-old male with PMH of CVA, osteoporosis, gait instability, HTN, BPH who who presents to the ED via EMS for chief complaint of ground level fall with right hip and right knee pain. Patient is here with his son who is POA. Patient has some aphasia with his history of stroke so son is helping to supplement the history. Son states the patient lives with nephew at home. Uses a Rollator for ambulation or uses 2 canes. States that today he became a little off balance while using the Rollator and fell to the right side. This was a ground level fall. Patient reports pain only to the right hip and right knee. His son does not feel that patient has been acting any different or had LOC. Denies suspected head injury or other injuries today. Denies recent illness, chest pain, shortness of breath, fevers, chills. <Haris Stephenson PA-C - Last Filed: 01/03/25 16:21> Related Data Home Medications: Home Medications ?Medication ?Instructions ?Recorded ?Confirmed ?Last Taken ?Type aspirin 25 mg-dipyridamole 200 mg 1 cap PO QHS 07/30/24 12/30/24 Unknown History capsule,ext.release 12 hr multiphase <DARIEL Kamara Last Filed: 01/03/25 16:21> Allergies/Adverse Reactions: Allergies Allergy/AdvReac Type Severity Reaction Status Date / Time No Known Allergies Allergy Verified 12/30/24 14:05 <Haris Stephenson PA-C - Last Filed: 01/03/25 16:21> [facility] Past Medical History Medical History: Medical History Arthritis BPH (benign prostatic hyperplasia) HTN (hypertension) IBS (irritable bowel syndrome) Osteoporosis Stroke <Haris Stephenson PA-C - Last Filed: 01/03/25 16:21> Surgical History Surgical History: Surgical History History of right hip replacement History of total right knee replacement History of left hip replacement History of left knee replacement History of appendectomy Hx of cholecystectomy <Haris Stephenson PA-C - Last Filed: 01/03/25 16:21> Family History Family History: Family History Mother Heart attack <Haris Stephenson PA-C - Last Filed: 01/03/25 16:21> Social History Social History: Social History Social History: caffeine-1 cup Smoking packs per day: 1.5 Smoking cigarettes per day: 30.0 Smoking status: Never smoker Tobacco type: cigarettes Alcohol intake: former <Haris Stephenson PA-C - Last Filed: 01/03/25 16:21> Exam 2 Narrative: GENERAL: Appears chronically ill. Conversational. HEAD: Normocephalic, atraumatic. EYES: PERRLA and EOMI. ENT: Nares clear, no rhinorrhea or epistaxis. Mucous membranes moist. Oropharynx without tonsillar hypertrophy exudate or other lesions. NECK: Supple. No adenopathy or masses. CHEST: No respiratory distress. Clear to auscultation. No wheezes rales or rhonchi HEART: Regular rate and rhythm. No murmur heard. Normal peripheral pulses. ABDOMEN: Soft, nontender, nondistended, normal active bowel sounds. MSK: Tenderness throughout the right femur, right hip. Significant reduction in range of motion of the right hip and right knee due to pain. 2+ DP PT pulses distally bilaterally. SKIN: Warm, dry, no rash. NEURO: Alert and oriented x4. Somewhat garbled speech. PSYCH: Normal mood and affect. <Haris Stephenson PA-C - Last Filed: 01/03/25 16:21> Course STRINGS TEACHER/PA Physician Supervision For this patient encounter, I reviewed the STRINGS TEACHER or PA documentation, treatment plan, and medical decision making; and I had mkmw-[id number] time with this patient. <Jt Claudio MD - Last Filed: 01/03/25 19:11> Vital Signs Vital signs: Vital Signs Temperature 98 F 01/03/25 12:41 Pulse Rate 107 H 01/03/25 12:41 Respiratory Rate 16 01/03/25 12:41 Blood Pressure 158/80 H 01/03/25 12:41 Pulse Oximetry 95 01/03/25 12:41 Oxygen Delivery Room Air 01/03/25 12:41 Temperature 98 F 01/03/25 12:41 Pulse Rate 102 H 01/03/25 15:58 Respiratory Rate 18 01/03/25 15:58 Blood Pressure 110/72 01/03/25 15:58 Pulse Oximetry 99 01/03/25 15:58 Oxygen Delivery Room Air 01/03/25 12:41 <Haris Stephenson PA-C - Last Filed: 01/03/25 16:21> Vital Signs Temperature 98 F 01/03/25 12:41 Pulse Rate 107 H 01/03/25 12:41 Respiratory Rate 16 01/03/25 12:41 Blood Pressure 158/80 H 01/03/25 12:41 Pulse Oximetry 95 01/03/25 12:41 Oxygen Delivery Room Air 01/03/25 12:41 Temperature 98 F 01/03/25 12:41 Pulse Rate 102 H 01/03/25 15:58 Respiratory Rate 18 01/03/25 15:58 Blood Pressure 110/72 01/03/25 15:58 Pulse Oximetry 99 01/03/25 15:58 Oxygen Delivery Room Air 01/03/25 12:41 <Jt Claudio MD - Last Filed: 01/03/25 19:11> MDM - Fall MDM Narrative Medical decision making narrative: This is a 79-year-old male who presents to the ED for chief complaint of ground level fall today with injury to the right hip and right knee. Vitals are normal. Exam remarkable for the above. No other traumatic findings on MSK exam or spinal exam. Lab work shows mild elevation of white count of 10.9, mild anemia 11.5 hemoglobin. CMP unremarkable. Coags unremarkable. Right knee x-ray: IMPRESSION: 1. Transverse fracture of distal femoral metaphysis. 2. Total right knee arthroplasty in near-anatomic alignment. 3. Small knee joint effusion. Bilateral hip x-ray: IMPRESSION: 1. Bilateral total hip arthroplasties in near-anatomic alignment. Presentation consistent with right knee periprosthetic fracture. He was given fluids, pain meds here with good relief symptoms. Spoke with Dr. Meeks ([facility] ED) who accepts trauma transfer. Spoke with patient and his family member who is POA. They are agreeable with transfer to [facility]. He will be transferred in stable condition. <Haris Stephenson PA-C - Last Filed: 01/03/25 16:21> Lab Data Result diagrams: 01/03/25 14:52 01/03/25 14:52 <Haris Stephenson PA-C - Last Filed: 01/03/25 16:21> Labs: Lab Results 01/03/25 Range/Units 14:52 WBC 10.9 H (4.5-10.0) K/mm3 RBC 3.69 L (4.6-6.20) M/mm3 Hgb 11.5 L (14.0-18.0) g/dL Hct 35.1 L (42.0-52.0) % MCV 95.1 (80-100) fl MCH 31.2 (26-34) pg MCHC 32.8 (32-36) g/dl RDW 12.9 (11.5-14.5) % Plt Count 147 L (150-375) k/mm3 MPV 11.6 H (7.4-10.4) fl Immature Gran % (Auto) 0.5 (0-0.5) % Neut % (Auto) 74.0 H (45.5-73.1) % Lymph % (Auto) 14.2 L (18.3-44.2) % Murray % (Auto) 9.7 H (2.6-8.5) % Eos % (Auto) 1.0 (0-4.4) % Baso % (Auto) 0.6 (0.2-1.2) % Lymph # (Auto) 1.54 (0.9-3.2) K/mm3 Murray # (Auto) 1.1 H (0.1-0.6) K/mm3 Eos # (Auto) 0.1 (0-0.3) K/mm3 Baso # (Auto) 0.1 (0.0-0.1) K/mm3 Abs Immat Gran (auto) 0.05 H (0.00-0.031) K/mm3 Absolute Neuts (auto) 8.1 H (1.3-6.7) K/mm3 Absolute Nucleated RBC 0.000 (0.0-0.012) K/mm3 Nucleated RBC % 0.0 (0.0-0.2) % PT 15.6 H (11.1-14.7) Seconds INR 1.2 APTT 33.7 (22.3-36.8) Seconds Sodium 136 L (137-145) mmol/L Potassium 3.5 (3.4-5.0) mmol/L Chloride 105 (98-107) mmol/L Carbon Dioxide 23 (22-30) mmol/L Anion Gap 8 (4-12) mmol/L BUN 15 (9-20) mg/dL Creatinine 0.79 (0.7-1.3) mg/dL Estim Creat Clear Calc 67 ml/min Estimated GFR > 60 (59 - ) Glucose 113 H (65-110) mg/dL Calcium 8.5 (8.4-10.2) mg/dL Total Bilirubin 0.9 (0.2-1.3) mg/dL AST 28 (17-59) U/L ALT 23 (6-50) U/L Alkaline Phosphatase 103 (38-126) U/L Total Protein 7.0 (6.3-8.2) g/dL Albumin 3.8 (3.5-5.1) g/dL <Haris Stephenson PA-C - Last Filed: 01/03/25 16:21> Lab Results 01/03/25 Range/Units 14:52 WBC 10.9 H (4.5-10.0) K/mm3 RBC 3.69 L (4.6-6.20) M/mm3 Hgb 11.5 L (14.0-18.0) g/dL Hct 35.1 L (42.0-52.0) % MCV 95.1 (80-100) fl MCH 31.2 (26-34) pg MCHC 32.8 (32-36) g/dl RDW 12.9 (11.5-14.5) % Plt Count 147 L (150-375) k/mm3 MPV 11.6 H (7.4-10.4) fl Immature Gran % (Auto) 0.5 (0-0.5) % Neut % (Auto) 74.0 H (45.5-73.1) % Lymph % (Auto) 14.2 L (18.3-44.2) % Murray % (Auto) 9.7 H (2.6-8.5) % Eos % (Auto) 1.0 (0-4.4) % Baso % (Auto) 0.6 (0.2-1.2) % Lymph # (Auto) 1.54 (0.9-3.2) K/mm3 Murray # (Auto) 1.1 H (0.1-0.6) K/mm3 Eos # (Auto) 0.1 (0-0.3) K/mm3 Baso # (Auto) 0.1 (0.0-0.1) K/mm3 Abs Immat Gran (auto) 0.05 H (0.00-0.031) K/mm3 Absolute Neuts (auto) 8.1 H (1.3-6.7) K/mm3 Absolute Nucleated RBC 0.000 (0.0-0.012) K/mm3 Nucleated RBC % 0.0 (0.0-0.2) % PT 15.6 H (11.1-14.7) Seconds INR 1.2 APTT 33.7 (22.3-36.8) Seconds Sodium 136 L (137-145) mmol/L Potassium 3.5 (3.4-5.0) mmol/L Chloride 105 (98-107) mmol/L Carbon Dioxide 23 (22-30) mmol/L Anion Gap 8 (4-12) mmol/L BUN 15 (9-20) mg/dL Creatinine 0.79 (0.7-1.3) mg/dL Estim Creat Clear Calc 67 ml/min Estimated GFR > 60 (59 - ) Glucose 113 H (65-110) mg/dL Calcium 8.5 (8.4-10.2) mg/dL Total Bilirubin 0.9 (0.2-1.3) mg/dL AST 28 (17-59) U/L ALT 23 (6-50) U/L Alkaline Phosphatase 103 (38-126) U/L Total Protein 7.0 (6.3-8.2) g/dL Albumin 3.8 (3.5-5.1) g/dL <Jt Claudio MD - Last Filed: 01/03/25 19:11> Discharge Plan Discharge Clinical Impression: Karen-prosthetic femoral shaft fracture <Haris Stephenson PA-C - Last Filed: 01/03/25 16:21> Patient Disposition: Acute Care Hospital <Haris Stephenson PA-C - Last Filed: 01/03/25 16:21> Condition: Stable <Haris Stephenson PA-C - Last Filed: 01/03/25 16:21> Patient Language: Georgian <Haris Stephenson PA-C - Last Filed: 01/03/25 16:21> Prescriptions: No Action Tylenol Extra Strength 500 mg powder in packet 1,000 mg PO Q8H PRN (Reason: pain) Qty: 32 0RF aspirin-dipyridamole 25-200 mg capsule, ER multiphase 12 hr 1 cap PO QHS buprenorphine [Butrans] 5 mcg/hour patch weekly 1 patch transdermal Q7D Qty: 4 0RF <Haris Stephenson PA-C - Last Filed: 01/03/25 16:21> Follow-up/Referrals: Rahul Morgan, DO [Primary Care Provider] - <Haris Stephenson PA-C - Last Filed: 01/03/25 16:21>
[2025-01-03 15:01] LABS: Basophils Absolute Auto 0.1 K/mm3 (0.0-0.1); Basophils Percent Auto 0.6 % (0.2-1.2); Eosinophils Absolute Auto 0.1 K/mm3 (0-0.3); Hematocrit 35.1 % (42.0-52.0); Hemoglobin 11.5 g/dL (14.0-18.0); Immature Granulocyte Absolute 0.05 K/mm3 (0.00-0.031); Immature Granulocyte Percent A 0.5 % (0-0.5); Lymphocytes Absolute Auto 1.54 K/mm3 (0.9-3.2); Lymphocytes Percent Auto 14.2 % (18.3-44.2); Mean Corpuscular HGB Conc 32.8 g/dl (32-36); Mean Corpuscular Hemoglobin 31.2 pg (26-34); Mean Corpuscular Volume 95.1 fl (80-100); Mean Platelet Volume 11.6 fl (7.4-10.4); Monocytes Absolute Auto 1.1 K/mm3 (0.1-0.6); Monocytes Percent Auto 9.7 % (2.6-8.5); Neutrophils Absolute Auto 8.1 K/mm3 (1.3-6.7); Platelet Count Result 147 k/mm3 (150-375); Red Blood Count 3.69 M/mm3 (4.6-6.20); Red Cell Distribution Width 12.9 % (11.5-14.5); White Blood Count 10.9 K/mm3 (4.5-10.0)
[2025-01-03 15:13] LABS: INR 1.2; Prothrombin Time 15.6 Seconds (11.1-14.7)
[2025-01-03 15:14] LABS: Alanine Aminotransferase 23 U/L (6-50); Albumin Level 3.8 g/dL (3.5-5.1); Alkaline Phosphatase 103 U/L (38-126); Anion Gap 8 mmol/L (4-12); Aspartate Amino Transferase 28 U/L (17-59); Bilirubin,Total 0.9 mg/dL (0.2-1.3); Blood Urea Nitrogen 15 mg/dL (9-20); Calcium 8.5 mg/dL (8.4-10.2); Carbon Dioxide 23 mmol/L (22-30); Chloride 105 mmol/L (98-107); Estimated CRCL calculation 67 ml/min; Estimated Glomerular Filt Rate > 60; Glucose 113 mg/dL (65-110); Partial Thromboplastin Time 33.7 Seconds (22.3-36.8); Potassium 3.5 mmol/L (3.4-5.0); Sodium 136 mmol/L (137-145)
[2025-01-03 15:58] VITALS: BP 110/72; PULSE 102; RESP 18; O2SAT 99
== END 2025-01-03 16:00 | disposition short-term general hospital (02) ==
PROVIDERS: Emergency Provider Physician Assistant; PCP Internal Medicine
DX: M97.11XA Periprosthetic fracture around internal prosthetic right knee joint, initial encounter (principal); W18.30XA Fall on same level, unspecified, initial encounter; I10 Essential (primary) hypertension; M81.0 Age-related osteoporosis without current pathological fracture; I69.320 Aphasia following cerebral infarction; Z79.82 Long term (current) use of aspirin; Z96.643 Presence of artificial hip joint, bilateral; Z96.653 Presence of artificial knee joint, bilateral
CPT/HCPCS: 36415; 73502; 73562; 80053; 85025; 85610; 85730; 96361; 96374; 96375; 99285; J1171; J2405; J7030

== ENCOUNTER 2025-05-25 14:53 | Outpatient (CLI) | payer MEDICARE, BC, SELFPAY ==
--- NOTE | ~2025-05-25 | XR_ITS ---
XR femur RT min 2V 05/25/2025 15:53 Indication: Fracture Procedure: 3 views of the right femur Comparison: 01/03/2025 Findings: Status post reduction of distal femoral fracture with longstem right knee arthroplasty as w ell as sideplate and multiple screws. There is a right total hip arthroplasty. Fracture fragments in anatomic alignment post reduction. There is atherosclerosis. Osteopenia. Impression: 1: Anatomic alignment of distal right femoral fracture status post internal fixation. Reviewed, dictated and finalized at location A. Impression: 1: Anatomic alignment of distal right femoral fracture status post internal fix ation.
== END 2025-05-25 14:54 | disposition home or self-care (01) ==
PROVIDERS: PCP Internal Medicine
DX: S72.401A Unspecified fracture of lower end of right femur, initial encounter for closed fracture (principal); X58.XXXA Exposure to other specified factors, initial encounter
CPT/HCPCS: 73552